=== PATIENT | female | born 1960 | race Caucasian/White ===

== ENCOUNTER 2017-08-30 11:12 | Emergency (ER) | payer MEDICARE, OTHER ==
[~2017-08-30] VITALS: Ht 157.5 cm; Wt 80.9 kg
[~2017-08-30 11:12] MED LIST: ANTIVERT 25MG25 MG PO; ASPIRIN 32325 MG/TAB PO; ASPIRIN 81M81 MG/TA2 PO; CYMBALTA 20MG20 MG PO; NORCO 325 MG-51 TAB PO; PHENERGAN 25 TA25 MG PO; VALIUM 2MG T2 MG/TAB PO; VITAMIN D1000 IU PO
[2017-08-30 11:15] VITALS: TEMP 98.1
[2017-08-30] MEDS ORDERED: CALCIUM 600MG+D1 TAB PO (11:34)
[2017-08-30 12:53] LABS: BASO % 0.4 % (0.0-2.0); EOS # 0.1 (0.0-0.7); EOS % 0.7 % (0-4.0); GRAN # 7.6 (1.4-6.5); GRAN % 82.3 % (42.2-75.2); HEMATOCRIT 42.4 % (37.0-47.0); HEMOGLOBIN 13.5 g/dl (12.5-16.0); LYMPH # 1.2 (1.2-3.4); LYMPH % 13.2 % (20.0-51.0); MEAN CELL VOLUME 91 fl (80.0-100.0); MEAN CORPUSCULAR HEMOGLOBIN 29 pg (27.0-31.0); MEAN CORPUSCULAR HGB CONC 32 g/dl (33.0-37.0); MEAN PLATELET VOLUME 9.8 fl (7.4-10.4); MONO # 0.3 (0.1-0.6); MONO % 3.2 % (1.7-9.3); PLATELET COUNT 260 K/mm3 (130-400); RED BLOOD COUNT 4.66 M/mm3 (4.10-5.30)
[2017-08-30 13:00] LABS: ALANINE AMINOTRANSFERASE 29 U/L (9-52); ALBUMIN 4.5 gm/dL (3.5-5.0); ALKALINE PHOSPHATASE 51 U/L (50-136); ANION GAP 10 mmol/L (7-16); AST,SGOT 23 U/L (15-37); BILIRUBIN,TOTAL 0.5 mg/dL (0.0-1.0); BLOOD UREA NITROGEN 10 mg/dL (7-17); CARBON DIOXIDE 27 mmol/L (22-30); CHLORIDE 104 mmol/L (98-107); CREATININE, serum 0.83 mg/dL (0.52-1.25); GLUCOSE 95 mg/dL (74-106); POTASSIUM 4.4 mmol/L (3.4-5.0); SODIUM 141 mmol/L (137-145); TOTAL PROTEIN 7.7 gm/dL (6.4-8.2)
[2017-08-30 13:13] LABS: TROPONIN-I < 0.012 ng/mL (0.000-0.034)
[2017-08-30] MEDS ORDERED: VALIUM 2MG T2 MG/TAB PO (14:03)
[2017-08-30] MEDS ORDERED: ZOFRAN 4MG T4 MG/TAB PO (14:03)
[2017-08-30] MEDS ORDERED: ANTIVERT 25MG25 MG PO (14:03)
[2017-08-30 14:05] VITALS: BP 161/99; PULSE 73
== END 2017-08-30 14:16 | disposition home or self-care (01) ==
LOC: COL.ER 11:12
PROVIDERS: Emergency Medicine
DX: R42 Dizziness and giddiness (principal); Z87.74 Personal history of (corrected) congenital malformations of heart and circulatory system; Z79.82 Long term (current) use of aspirin
CPT/HCPCS: J1200; J1885; J2060; J2550; J7030

== ENCOUNTER 2018-01-09 13:01 | Outpatient (CLI) | payer MEDICARE, OTHER ==
[~2018-01-09] VITALS: Ht 157.5 cm; Wt 85.5 kg
[~2018-01-09 13:01] MED LIST changes: +CALCIUM 600MG+D1 TAB PO; +NEURONTIN100 MG/CAP PO; +ZOFRAN 4MG T4 MG/TAB PO
[2018-01-09 13:20] VITALS: BP 152/80; PULSE 60
[2018-01-09 14:22] VITALS: BP 134/61; PULSE 61
[2018-01-09 14:35] VITALS: BP 134/61; PULSE 60
[2018-01-09 14:43] VITALS: BP 120/59; PULSE 64
[2018-01-09 15:00] VITALS: BP 114/68; PULSE 60
[2018-01-09 15:26] VITALS: BP 126/59; PULSE 61
== END 2018-01-09 15:27 | disposition home or self-care (01) ==
LOC: COL.RAD 13:01
DX: Z01.818 Encounter for other preprocedural examination (principal); M43.16 Spondylolisthesis, lumbar region; M48.061 Spinal stenosis, lumbar region without neurogenic claudication; M41.86 Other forms of scoliosis, lumbar region; M51.24 Other intervertebral disc displacement, thoracic region; Z98.890 Other specified postprocedural states
CPT/HCPCS: Q9965

== ENCOUNTER → 2018-07-03 | Outpatient (CLI) | payer MEDICARE, OTHER | LOC: MC.RAD 10:26 | DX: Z12.31 Encounter for screening mammogram for malignant neoplasm of breast (principal) ==

== ENCOUNTER 2018-12-01 12:53 | Inpatient (IN) | payer MEDICARE, OTHER ==
[~2018-12-01] VITALS: Ht 160 cm; Wt 75.2 kg
[2019-01-04] VITALS (12 sets, daily range): BP systolic 111–126; BP diastolic 44–66; PULSE 60–77; TEMP 97.2–99
[2019-01-04] MEDS ORDERED: PREMARIN VAG42.5 GM VG (00:42)
[2019-01-04] MEDS ORDERED: OYSTER SHELL CA1 TA6 PO (00:45)
[2019-01-04] MEDS ORDERED: MASON NATURAL2000 IU PO (00:46)
[2019-01-04] MEDS ORDERED: DRISDOL50000 IU PO (00:49)
[2019-01-04] MEDS ORDERED: FERRO-TIME325 MG PO (05:48)
[2019-01-04] MEDS ORDERED: VITAMIN C500 MG PO (05:48)
[2019-01-04] MEDS ORDERED: FOLIC ACID 40400 MCG PO (05:49)
--- NOTE | 2019-01-04 06:20 | NUR ---
bedside shift report received from SHOLA Cox
--- NOTE | 2019-01-04 06:24 | NUR ---
Patient admitted at 0530. Site scrubbed and pulses marked. 20G IV placed in Left antecubital. Fluids running as ordered. 5 page, initial, and pre-op checklist completed. Patient off the floor to pre-op at 0626.
--- NOTE | 2019-01-04 12:30 | NUR ---
returned to room per bed from PACU, awake and alert but a little drowsy, IV infusing and placed on pump at 100ml/hr, O2 on at 2LNC and O2 sat 100%, ames cath patent draining clear yellow urine, SCDS and RYAN hose on bilaterally, bulky occlusive dressing to right hip CD&I with ice in place, full assessment completed, see interventions for further info, denies needs at this time
--- NOTE | 2019-01-04 13:00 | NUR ---
quietly resting in bed but c/o some pain to help, explained she will have some pain even with the block,
--- NOTE | 2019-01-04 13:15 | NUR ---
continues to c/o hip pain, will medicate
--- NOTE | 2019-01-04 13:45 | NUR ---
medicated with roxicodone 10mg po for c/os pain to right hip, rests quietly without moaning or grimacing
--- NOTE | 2019-01-04 14:15 | NUR ---
continues to rest quietly in bed between checks with lights off, eyes closed but arouses easily when nurse enters room
--- NOTE | 2019-01-04 14:22 | NUR ---
[facility] met with the patient and her to discuss a discharge plan. The patient lives in [place] with her and two adopted children. The patient has a walker but she does not use it to ambulate and she reports independence with ADLs. The patient's PCP is Dr. Hola Erwin and the patient receives her medications from [facility]. The patient does not have advanced directives and she was not interested in obtaining a DPOA-HC form. The patient plans to return home upon discharge. There are no additional needs at this time.
--- NOTE | 2019-01-04 15:20 | NUR ---
dozes at intervals but continues to c/o spasms to right hip
--- NOTE | 2019-01-04 16:25 | NUR ---
c/o headache, medicated with tylenol 1000mg
--- NOTE | 2019-01-04 17:24 | NUR ---
resting in bed visiting with family
--- NOTE | 2019-01-04 18:43 | NUR ---
awake resting in bed, bedside shift report given to SHOLA Cox
--- NOTE | 2019-01-04 21:45 | NUR ---
Patient ambulated long term to the bedroom door and back. States that walking is okay, but its the standing up and sitting down that hurts the most. Pain medication given. States this is effective. Romo catheter in place and planned to be removed in the morning. IV fluids running to left AC. Dressing intact. Ice to site. Will continue to monitor.
[2019-01-05 04:25] VITALS: BP 110/51; PULSE 66; TEMP 98.6
--- NOTE | 2019-01-05 06:27 | NUR ---
Patient resting well in bed. Currently awake watching television. Denies pain. Requests and received a cup of coffee. Will report off to day shift nurse.
--- NOTE | 2019-01-05 07:08 | NUR ---
Report from Mia JOLLEY.
[2019-01-05 07:12] LABS: HEMOGLOBIN 9.6 g/dl (12.5-16.0)
[2019-01-05 07:32] VITALS: BP 113/58; PULSE 68; TEMP 98.7
--- NOTE | 2019-01-05 09:31 | NUR ---
PT EATING BREAKFAST. PT WOULD LIKE TO DISCHARGE HOME LATER THIS MORNING OR AFTERNOON AFTER THERAPY.
[2019-01-05 12:16] VITALS: BP 147/54; PULSE 59; TEMP 97.9
[2019-01-05] MEDS ORDERED: XARELTO10 MG PO (14:45)
[2019-01-05] MEDS ORDERED: NORCO 325 MG-7.1 TAB PO (14:45)
[2019-01-05] MEDS ORDERED: ROXICODONE 55 MG/TAB PO (14:46)
--- NOTE | 2019-01-05 15:07 | NUR ---
DISCHARGE INSTRUCTIONS REVIEWED WITH PATIENT AND SPOUSE. QUESTIONS ANSWERED. PT TAKEN TO FRONT PER WHEEL CHAIR.
== END 2019-01-05 15:15 | disposition home or self-care (01) | DRG 470 ==
LOC: JCC 01-04 05:20
PROVIDERS: ADMIT Orthopaedic Surgery
PROC: 0QH604Z Insertion of Internal Fixation Device into Right Upper Femur, Open Approach (ICD-10-PCS; 2019-01-04)
PROC: 0SR906Z Replacement of Right Hip Joint with Oxidized Zirconium on Polyethylene Synthetic Substitute, Open Approach (ICD-10-PCS; principal; 2019-01-04 07:30)
DX: M16.11 Unilateral primary osteoarthritis, right hip (principal); M96.661 Fracture of femur following insertion of orthopedic implant, joint prosthesis, or bone plate, right leg; F32.9 Major depressive disorder, single episode, unspecified; G89.29 Other chronic pain; M54.9 Dorsalgia, unspecified; Y92.234 Operating room of hospital as the place of occurrence of the external cause; Y65.8 Other specified misadventures during surgical and medical care; Z79.01 Long term (current) use of anticoagulants; Z79.891 Long term (current) use of opiate analgesic; Z88.0 Allergy status to penicillin; Z88.8 Allergy status to other drugs, medicaments and biological substances
CPT/HCPCS: A4216; A9284; C1776; J0690; J1100; J1170; J1885; J2250; J2370; J2405; J2704; J2795; J3010; J7042; J7120

== ENCOUNTER → 2018-12-30 | Outpatient (CLI) | payer MEDICARE, OTHER | LOC: COL.LAB 10:43 | DX: Z01.812 Encounter for preprocedural laboratory examination (principal) ==

== ENCOUNTER 2019-02-05 08:46 | Outpatient (CLI) | payer MEDICARE, OTHER ==
[2019-02-05] VITALS (13 sets, daily range): BP systolic 110–129; BP diastolic 59–67; PULSE 58–77; TEMP 98
[~2019-02-05] VITALS: Ht 160.1 cm; Wt 69.3 kg
[~2019-02-05 08:46] MED LIST changes: +DRISDOL50000 IU PO; +FERRO-TIME325 MG PO; +FOLIC ACID 40400 MCG PO; +MASON NATURAL2000 IU PO; +NORCO 325 MG-7.1 TAB PO; +OYSTER SHELL CA1 TA6 PO; +PREMARIN VAG42.5 GM VG; +ROXICODONE 55 MG/TAB PO; +VITAMIN C500 MG PO; +XARELTO10 MG PO
[2019-02-05 09:46] LABS: CALCIUM 9.7 mg/dL (8.4-10.2); CREATININE, serum 0.58 (0.52-1.25); POTASSIUM 4.2 mmol/L (3.4-5.0)
[2019-02-05 09:53] LABS: HEMATOCRIT 37.3 % (37.0-47.0); HEMOGLOBIN 11.3 g/dl (12.5-16.0); MEAN CELL VOLUME 88 fl (80.0-100.0); MEAN CORPUSCULAR HEMOGLOBIN 27 pg (27.0-31.0); MEAN CORPUSCULAR HGB CONC 30 g/dl (33.0-37.0); MEAN PLATELET VOLUME 9.5 fl (7.4-10.4); PLATELET COUNT 298 K/mm3 (130-400); RED BLOOD COUNT 4.24 M/mm3 (4.10-5.30); REDCELL DISTRIBUTION WIDTH-CV 14.3 % (11.5-14.5)
[2019-02-05 10:13] LABS: PROTHROMBIN TIME 11.3 SECONDS (9.7-12.8)
--- NOTE | 2019-02-05 11:15 | NUR ---
INT discontinued intact. Discharge instructions given. Transferred to private car by nya
== END 2019-02-05 11:16 | disposition home or self-care (01) ==
LOC: COL.RAD 08:46
PROVIDERS: Internal Medicine Cardiovascular Disease
DX: I08.1 Rheumatic disorders of both mitral and tricuspid valves (principal); L53.8 Other specified erythematous conditions; E78.5 Hyperlipidemia, unspecified; I27.20 Pulmonary hypertension, unspecified; I25.3 Aneurysm of heart; Z86.73 Personal history of transient ischemic attack (TIA), and cerebral infarction without residual deficits; Z98.890 Other specified postprocedural states

== ENCOUNTER → 2019-09-16 | Outpatient (CLI) | payer MEDICARE, OTHER | LOC: MC.RAD 10:36 | DX: Z12.31 Encounter for screening mammogram for malignant neoplasm of breast (principal); Z78.0 Asymptomatic menopausal state ==

== ENCOUNTER → 2020-12-11 | Outpatient (CLI) | payer MEDICARE, OTHER | LOC: MC.RAD 09:15 | DX: Z12.31 Encounter for screening mammogram for malignant neoplasm of breast (principal) ==

== ENCOUNTER → 2022-04-01 | Outpatient (CLI) | payer MEDICARE, OTHER | LOC: MC.RAD 03-14 09:30 | DX: Z12.31 Encounter for screening mammogram for malignant neoplasm of breast (principal) ==

== ENCOUNTER → 2023-10-28 | Outpatient (CLI) | payer MEDICARE, OTHER | LOC: MC.RAD 09:43 | DX: Z12.31 Encounter for screening mammogram for malignant neoplasm of breast (principal) ==